=== PATIENT | female | born 1965 | race Caucasian/White ===

== ENCOUNTER → 2018-09-22 | Outpatient (CLI) | payer OTHER ==
--- NOTE | 2018-09-22 21:09 | REP ---
Clinical: Cervicalgia Technique: AP, lateral, flexion/extension, bilateral oblique, and open-mouth views of the cervical spine. Findings: Alignment and lordosis maintained. Vertebral bodies are intact. No acute fracture / compression injury or subluxation. There is moderate focal degenerative disc osteophyte complex at the C5-6. Remainder examination appears relatively normal for age. Oblique views demonstrate patent neural foramen. Open mouth view demonstrates normal C1-C2 articulation and odontoid process. Impression: Moderate focal degenerative spondylosis at C5-6. Electronically Signed by Nav Mansfield MD 09/22/2018 09:01 P
== END ==
LOC: M RAD 10:02
PROVIDERS: ATTEND Physician Assistant
DX: M47.892 Other spondylosis, cervical region (principal)